=== PATIENT | male | born 1965 | race Caucasian/White ===

== ENCOUNTER 2016-12-12 18:35 | Emergency (ER) | payer SELFPAY ==
[2016-12-12 18:40] VITALS: BMI 54.1
[2016-12-12] MEDS ORDERED: Levalbuterol 1.25 MG/3 ML Inhal Soln UD IH STA ×3 (18:40→19:34)
[2016-12-12] MEDS ORDERED: MethylPREDNISolone 40 mg Vial IM STA (18:41)
[2016-12-12 18:44] VITALS: TEMP 98.1
--- NOTE | 2016-12-12 18:45 | ED PDOC ---
Arrival/HPI - General Time Seen by Provider: 12/12/16 18:40 Historian: Patient - History of Present Illness Narrative History of Present Illness (Text): 12/12/16 18:41 51yo morbidly obese male with PMHx of Asthma present with two days history of nonproducitve cough, SOB and wheeze. states he has been using his inhaler and took singular at home without relieve. Notes that this is his typical symptoms with Asthma exacerbation. He states whenever he gets these symptoms, is usually relieved with injection of steroid and medro dose pack. He has been admitted in for status Asthmaticus in the past. He is not steroid dependent. Never intubated. Denies fver, chills, chest pain, sick contact, any other complaint. Past Medical History - Provider Review Nursing Documentation Reviewed: Yes - Tetanus Immunization Tetanus Immunization: Unknown - Cardiac Hx Cardiac Disorders: No - Pulmonary Hx Asthma: Yes Hx Sleep Apnea: Yes - Neurological Hx Neurological Disorder: No - HEENT Hx HEENT Disorder: No - Renal Hx Renal Disorder: No - Endocrine/Metabolic Hx Endocrine Disorders: No - Hematological/Oncological Hx Blood Disorders: No - Integumentary Hx Dermatological Disorder: No - Musculoskeletal/Rheumatological Hx Falls: No - Gastrointestinal Hx Gastrointestinal Disorders: No - Genitourinary/Gynecological Hx Genitourinary Disorders: No - Psychiatric Hx Psychophysiologic Disorder: No Hx Depression: No Hx Emotional Abuse: No Hx Physical Abuse: No Hx Substance Use: No - Surgical History Hx Gastric Bypass Surgery: Yes (2011) Other/Comment: Lap Band 2012 - Anesthesia Hx Anesthesia: Yes Hx Anesthesia Reactions: No Hx Malignant Hyperthermia: No - Suicidal Assessment Feels Threatened In Home Enviroment: No Family/Social History - Physician Review Nursing Documentation Reviewed: Yes Family/Social History: Unknown Family HX Smoking Status: Never Smoked Hx Alcohol Use: No Hx Substance Use: No Hx Substance Use Treatment: No Allergies/Home Meds Allergies/Adverse Reactions: Allergies No Known Allergies Allergy (Verified 12/12/16 18:40) per patient Home Medications: Home Meds Medication Instructions Recorded Confirmed Albuterol Sulfate [Proventil Hfa] 2 puff IH PRN PRN 11/25/14 12/12/16 Fluticasone/Salmeterol 250/50 1 inh INH PRN PRN 10/27/15 12/12/16 [Advair Diskus 250/50] Review of Systems - Physician Review All systems were reviewed & negative as marked: Yes - Review of Systems Constitutional: Normal Eyes: Normal ENT: Normal Respiratory: SOB, Cough, Wheezing. absent: Sputum Cardiovascular: Normal Gastrointestinal: Normal Genitourinary Male: Normal Musculoskeletal: Normal Skin: Normal Neurological: Normal Endocrine: Normal Hemo/Lymphatic: Normal Psychiatric: Normal Physical Exam Vital Signs Reviewed: Yes Vital Signs Temp Pulse Resp BP Pulse Ox 12/12/16 19:50 98 H 19 118/56 L 97 12/12/16 18:38 20 12/12/16 18:35 98.1 F 94 H 20 99 Temperature: Afebrile Blood Pressure: Normal Pulse: Regular Respiratory Rate: Normal Appearance: Positive for: Well-Appearing, Non-Toxic, Comfortable Pain Distress: None Mental Status: Positive for: Alert and Oriented X 3 - Systems Exam Head: Present: Atraumatic, Normocephalic Pupils: Present: PERRL Extroacular Muscles: Present: EOMI Conjunctiva: Present: Normal Mouth: Present: Moist Mucous Membranes Neck: Present: Normal Range of Motion Respiratory/Chest: Present: Clear to Auscultation, Good Air Exchange, Wheezes ( Mild diffuse expiratory wheeze). No: Respiratory Distress, Accessory Muscle Use , Decreased Breath Sounds, Rales, Retracting, Rhonchi, Tachypneic Cardiovascular: Present: Regular Rate and Rhythm, Normal S1, S2. No: Murmurs Abdomen: Present: Normal Bowel Sounds. No: Tenderness, Distention, Peritoneal Signs Back: Present: Normal Inspection Upper Extremity: Present: Normal Inspection. No: Cyanosis, Edema Lower Extremity: Present: Normal Inspection. No: Edema Neurological: Present: GCS=15, CN II-XII Intact, Speech Normal Skin: Present: Warm, Dry, Normal Color. No: Rashes Psychiatric: Present: Alert, Oriented x 3, Normal Insight, Normal Concentration Medical Decision Making ED Course and Treatment: 12/12/16 20:30 Pt in ED for stated history. On re evaluation his Lung was CTA b/l. He states he feels much better. He was ambulatory and talking in full sentence without distress. She requested for antitussive and was given Promethazine. Referred to his PMD. TRT ED for any new or worsening symptoms. - Medication Orders Current Medication Orders: Discontinued Medications Levalbuterol HCl (Xopenex) 1.25 mg IH STAT STA Stop: 12/12/16 18:41 Last Admin: 12/12/16 18:52 Dose: 1.25 mg Levalbuterol HCl (Xopenex) 1.25 mg IH STAT STA Stop: 12/12/16 19:00 Last Admin: 12/12/16 19:24 Dose: 1.25 mg Levalbuterol HCl (Xopenex) 1.25 mg IH STAT STA Stop: 12/12/16 19:35 Last Admin: 12/12/16 19:39 Dose: 1.25 mg Methylprednisolone (Solu-Medrol) 125 mg IM STAT STA Stop: 12/12/16 18:42 Last Admin: 12/12/16 18:53 Dose: 125 mg Methylprednisolone (Solu-Medrol) Confirm Administered Dose 125 mg .ROUTE .STK- MED ONE Stop: 12/12/16 18:51 Last Admin: 12/12/16 19:16 Dose: Disposition/Present on Arrival - Present on Arrival Any Indicators Present on Arrival: No History of DVT/PE: No History of Uncontrolled Diabetes: No Urinary Catheter: No History Surgical Site Infection Following: None - Disposition Have Diagnosis and Disposition been Completed?: Yes Diagnosis: Asthmatic bronchitis Disposition: HOME/ ROUTINE Disposition Time: 20:30 Patient Plan: Discharge Condition: STABLE Discharge Instructions (ExitCare): Asthma (ED) Additional Instructions: Follow up with your Doctor Return to ED for any new or worsening symptoms Prescriptions: Methylprednisolone [Medrol Dose Pack (21 tabs)] 4 mg PO DAILY #21 mg Promethazine DM [Phenergan DM Syrup] 5 ml PO Q6 #100 ml
[2016-12-12] MEDS ORDERED: Promethazine 6.25 MG/5 ML CUP PO STA (20:26)
[2016-12-12 20:46] VITALS: BP 144/94; PULSE 97; RESP 18; O2SAT 95
== END 2016-12-12 20:57 | disposition home or self-care (01) ==
LOC: ED 18:35
DX: J45.909 Unspecified asthma, uncomplicated (principal)
CPT/HCPCS: 96372; 99285; J2920

== ENCOUNTER 2017-09-11 19:06 | Emergency (ER) | payer SELFPAY ==
[2017-09-11 19:12] VITALS: TEMP 98.6; BMI 60.5
[2017-09-11 19:15] VITALS: PULSE 83
[2017-09-11] MEDS ORDERED: Oxycodone/Acetaminophen 5/325 mg Tab PO STA (19:24)
--- NOTE | 2017-09-11 19:27 | ED PDOC ---
Arrival/HPI - General Chief Complaint: Back Pain Time Seen by Provider: 09/11/17 19:19 Historian: Patient - History of Present Illness Narrative History of Present Illness (Text): 09/11/17 19:24 52yo morbidly obese male with Past medical history of hypertension, Asthma present with complaint of right sided anterior and posterior rib pain. Patient notes that the pain started a week ago, when he coughed. States it felt like something "popped" then. States he took a friend Tramadol without relieve. States pain is worse with palpation, deep inspiration or movement. Denies shortness of breath, diaphoresis, chest pain, nausea, vomiting, urinary symptoms, abdominal pain, any other complaint. Past Medical History - Provider Review Nursing Documentation Reviewed: Yes - Tetanus Immunization Tetanus Immunization: Unknown - Cardiac Hx Cardiac Disorders: No - Pulmonary Hx Asthma: Yes Hx Sleep Apnea: Yes - Neurological Hx Neurological Disorder: No - HEENT Hx HEENT Disorder: No - Renal Hx Renal Disorder: No - Endocrine/Metabolic Hx Endocrine Disorders: No - Hematological/Oncological Hx Blood Disorders: No - Integumentary Hx Dermatological Disorder: No - Musculoskeletal/Rheumatological Hx Falls: No - Gastrointestinal Hx Gastrointestinal Disorders: No - Genitourinary/Gynecological Hx Genitourinary Disorders: No - Psychiatric Hx Psychophysiologic Disorder: No Hx Depression: No Hx Emotional Abuse: No Hx Physical Abuse: No Hx Substance Use: No - Surgical History Hx Gastric Bypass Surgery: Yes (2011) Other/Comment: Lap Band 2012 - Anesthesia Hx Anesthesia: Yes Hx Anesthesia Reactions: No Hx Malignant Hyperthermia: No - Suicidal Assessment Feels Threatened In Home Enviroment: No Family/Social History - Physician Review Nursing Documentation Reviewed: Yes Family/Social History: Unknown Family HX Smoking Status: Never Smoked Hx Alcohol Use: No Hx Substance Use: No Hx Substance Use Treatment: No Allergies/Home Meds Allergies/Adverse Reactions: Allergies No Known Allergies Allergy (Verified 09/11/17 19:10) per patient Home Medications: Home Meds Medication Instructions Recorded Confirmed Albuterol Sulfate [Proventil Hfa] 2 puff IH PRN PRN 11/25/14 09/11/17 Fluticasone/Salmeterol 250/50 1 inh INH PRN PRN 10/27/15 09/11/17 [Advair Diskus 250/50] Review of Systems - Physician Review All systems were reviewed & negative as marked: Yes - Review of Systems Constitutional: Normal Eyes: Normal ENT: Normal Respiratory: Normal Cardiovascular: Normal Gastrointestinal: Normal Genitourinary Male: Normal Musculoskeletal: Arthralgias (Right rib pain) Skin: Normal Neurological: Normal Endocrine: Normal Hemo/Lymphatic: Normal Psychiatric: Normal Physical Exam Vital Signs Reviewed: Yes Vital Signs Temp Pulse Resp BP Pulse Ox 09/11/17 19:12 98.6 F 83 21 123/76 96 09/11/17 19:10 98.6 F 97 H 21 123/76 98 Temperature: Afebrile Blood Pressure: Normal Pulse: Regular Respiratory Rate: Normal Appearance: Positive for: Well-Appearing, Non-Toxic, Comfortable Pain Distress: None Mental Status: Positive for: Alert and Oriented X 3 - Systems Exam Head: Present: Atraumatic, Normocephalic Pupils: Present: PERRL Extroacular Muscles: Present: EOMI Conjunctiva: Present: Normal Mouth: Present: Moist Mucous Membranes Neck: Present: Normal Range of Motion Respiratory/Chest: Present: Clear to Auscultation, Good Air Exchange, Tender to Palpation (anterior/posterior ribs). No: Respiratory Distress, Accessory Muscle Use, Wheezes, Decreased Breath Sounds, Rales, Retracting, Rhonchi, Tachypneic Cardiovascular: Present: Regular Rate and Rhythm, Normal S1, S2. No: Murmurs Abdomen: Present: Normal Bowel Sounds. No: Tenderness, Distention, Peritoneal Signs Back: Present: Normal Inspection Upper Extremity: Present: Normal Inspection. No: Cyanosis, Edema Lower Extremity: Present: Normal Inspection. No: Edema Neurological: Present: GCS=15, CN II-XII Intact, Speech Normal Skin: Present: Warm, Dry, Normal Color. No: Rashes Psychiatric: Present: Alert, Oriented x 3, Normal Insight, Normal Concentration Medical Decision Making ED Course and Treatment: 09/11/17 20:07 PT in Emergency department for stated history. He was not hypoxic , hemodynamically stable in Emergency department. Right ribs series/CXr NAD Result was DW the pt. His pain was controlled in Emergency department with medication. He will be DC home with incentive spirometry, Naprosyn and Tramadol. Referred to his PMD. - RAD Interpretation Radiology Orders: 09/11/17 19:24 RIBS RIGHT & PA CHEST [RAD] Stat - Medication Orders Current Medication Orders: Discontinued Medications Ketorolac Tromethamine (Toradol) 60 mg IM STAT STA Stop: 09/11/17 19:24 Oxycodone/Acetaminophen (Percocet 5/325 Mg Tab) 1 tab PO STAT STA Stop: 09/11/17 19:25 Disposition/Present on Arrival - Present on Arrival Any Indicators Present on Arrival: No History of DVT/PE: No History of Uncontrolled Diabetes: No Urinary Catheter: No History of Decub. Ulcer: No History Surgical Site Infection Following: None - Disposition Have Diagnosis and Disposition been Completed?: Yes Diagnosis: Rib pain Disposition: HOME/ ROUTINE Disposition Time: 20:10 Patient Plan: Discharge Condition: STABLE Discharge Instructions (ExitCare): Chest Pain (ED) Additional Instructions: Follow up with your doctor Return to Emergency department for any new or worsening symptoms Prescriptions: Naproxen [Naprosyn] 500 mg PO BID #20 tablet traMADol [Ultram] 50 mg PO TID #10 tab Referrals: [facility] at [facility] [place] [Outside] - Follow up with primary Forms: [email or web address] (Nepali)
[2017-09-11 21:04] VITALS: BP 126/88; RESP 20; O2SAT 97
--- NOTE | 2017-09-12 09:59 | RAD ---
PROCEDURE: Radiographs of the Chest and Right Ribs. HISTORY: rib pain COMPARISON: None available. TECHNIQUE: Frontal radiograph of the chest and multiple oblique radiographs of the right ribs were obtained. FINDINGS: RIGHT RIBS: No acute rib fracture or focal lesion visualized. LUNGS: Clear. PLEURA: No pneumothorax or pleural fluid. CARDIOVASCULAR: Normal sized heart. No pulmonary vascular congestion. OTHER FINDINGS: None. IMPRESSION: No acute rib fracture. Clear lungs
== END 2017-09-11 20:49 | disposition home or self-care (01) ==
LOC: ED 19:06
DX: R07.81 Pleurodynia (principal)
CPT/HCPCS: 71101; 96372; 99284; J1885

== ENCOUNTER 2017-11-27 17:15 | Emergency (ER) | payer OTHER ==
[2017-11-27 17:15] VITALS: BMI 60.5
[2017-11-27 17:21] VITALS: RESP 18
--- NOTE | 2017-11-27 18:40 | ED PDOC ---
Arrival/HPI - General Historian: Patient <Naty Douglas A - Last Filed: 11/27/17 18:36> <Stef Groves - Last Filed: 11/27/17 21:21> - General Chief Complaint: Lower Extremity Problem/Injury Time Seen by Provider: 11/27/17 17:26 - History of Present Illness Narrative History of Present Illness (Text): 11/27/17 18:37 52yo morbidly obese male with PMHx of Asthma who present today with complaint of left knee pain s/p trauma last week. States he slipped and fell, injuring his knee last week. States he took OTC analgesic without relieve. He came to ED today for the persistent pain. He denies any other complaint (Naty Douglas A) Past Medical History - Provider Review Nursing Documentation Reviewed: Yes - Tetanus Immunization Tetanus Immunization: Unknown - Cardiac Hx Cardiac Disorders: No - Pulmonary Hx Asthma: Yes Hx Sleep Apnea: Yes - Neurological Hx Neurological Disorder: No - HEENT Hx HEENT Disorder: No - Renal Hx Renal Disorder: No - Endocrine/Metabolic Hx Endocrine Disorders: No - Hematological/Oncological Hx Blood Disorders: No - Integumentary Hx Dermatological Disorder: No - Musculoskeletal/Rheumatological Hx Falls: No - Gastrointestinal Hx Gastrointestinal Disorders: No - Genitourinary/Gynecological Hx Genitourinary Disorders: No - Psychiatric Hx Psychophysiologic Disorder: No Hx Depression: No Hx Emotional Abuse: No Hx Physical Abuse: No Hx Substance Use: No - Surgical History Hx Gastric Bypass Surgery: Yes (2011) Other/Comment: Lap Band 2012 - Anesthesia Hx Anesthesia: Yes Hx Anesthesia Reactions: No Hx Malignant Hyperthermia: No - Suicidal Assessment Feels Threatened In Home Enviroment: No <Naty Douglas A - Last Filed: 11/27/17 18:36> Family/Social History - Physician Review Nursing Documentation Reviewed: Yes Family/Social History: Unknown Family HX Smoking Status: Never Smoked Hx Alcohol Use: No Hx Substance Use: No Hx Substance Use Treatment: No <Naty Douglas A - Last Filed: 11/27/17 18:36> Allergies/Home Meds <Naty Douglas A - Last Filed: 11/27/17 18:36> <Stef Groves - Last Filed: 11/27/17 21:21> Allergies/Adverse Reactions: Allergies No Known Allergies Allergy (Verified 11/27/17 17:21) per patient Home Medications: Home Meds Medication Instructions Recorded Confirmed Albuterol Sulfate [Proventil Hfa] 2 puff IH PRN PRN 11/25/14 11/27/17 Fluticasone/Salmeterol 250/50 1 inh INH PRN PRN 10/27/15 11/27/17 [Advair Diskus 250/50] Physical Exam Vital Signs Reviewed: Yes Temperature: Afebrile Blood Pressure: Normal Pulse: Regular Respiratory Rate: Normal Appearance: Positive for: Well-Appearing, Non-Toxic, Comfortable Pain Distress: None Mental Status: Positive for: Alert and Oriented X 3 - Systems Exam Head: Present: Atraumatic, Normocephalic Pupils: Present: PERRL Extroacular Muscles: Present: EOMI Conjunctiva: Present: Normal Mouth: Present: Moist Mucous Membranes Neck: Present: Normal Range of Motion Respiratory/Chest: Present: Clear to Auscultation, Good Air Exchange. No: Respiratory Distress, Accessory Muscle Use Cardiovascular: Present: Regular Rate and Rhythm, Normal S1, S2. No: Murmurs Abdomen: No: Tenderness, Distention, Peritoneal Signs Back: Present: Normal Inspection Upper Extremity: Present: Normal Inspection. No: Cyanosis, Edema Lower Extremity: Present: NORMAL PULSES, Normal ROM, Tenderness (medial aspect of left knee), Neurovascularly Intact. No: Edema, Swelling Neurological: Present: GCS=15, CN II-XII Intact, Speech Normal Skin: Present: Warm, Dry, Normal Color. No: Rashes Psychiatric: Present: Alert, Oriented x 3, Normal Insight, Normal Concentration <DiruHappiness A - Last Filed: 11/27/17 18:36> Vital Signs Temp Pulse Resp BP Pulse Ox 11/27/17 18:56 97.9 F 80 18 140/82 96 11/27/17 17:24 98.0 F 84 18 145/86 99 11/27/17 17:19 98 F 84 18 145/86 96 11/27/17 17:15 98 F 84 18 145/86 96 Medical Decision Making <Diru,Happiness A - Last Filed: 11/27/17 18:36> <Stef Groves - Last Filed: 11/27/17 21:21> ED Course and Treatment: 11/27/17 18:42 Left knee xray - No acute fracture noted Result was DW the pt. Brijesh wrap placed. Rx of Naprosyn given. Referred to Ortho. (Naty Douglas) - RAD Interpretation Radiology Orders: 11/27/17 17:31 KNEE WITH PATELLA LEFT 3 VIEW [RAD] Stat - Medication Orders Current Medication Orders: Discontinued Medications Ketorolac Tromethamine (Toradol) 60 mg IM STAT STA Stop: 11/27/17 17:57 Last Admin: 11/27/17 18:05 Dose: 60 mg MAR Pain Assessment Document 11/27/17 18:05 SRE (Rec: 11/27/17 18:09 SRE [id number]) Pain Reassessment Is this a pain reassessment? Yes Sleep Is patient sleeping during reassessment? No Presence of Pain Presence of Pain Yes Pain Scale Used Pain Scale Used Numeric Location Pain Location Body Site Knee Description Description Intermittent IM Administration Charges Document 11/27/17 18:05 SRE (Rec: 11/27/17 18:09 SRE [id number]) Charges for Administration # of IM Administrations 1 - PA / PUBLIC SERVICES ASSISTANT / Resident Statement / has examined the patient and agrees with the treatment plan. <Stef Groves - Last Filed: 11/27/17 21:21> Disposition/Present on Arrival - Present on Arrival Any Indicators Present on Arrival: No History of DVT/PE: No History of Uncontrolled Diabetes: No Urinary Catheter: No History of Decub. Ulcer: No History Surgical Site Infection Following: None - Disposition Have Diagnosis and Disposition been Completed?: Yes Disposition Time: 18:45 Patient Plan: Discharge <Naty Douglas - Last Filed: 11/27/17 18:36> <Stef Groves - Last Filed: 11/27/17 21:21> - Disposition Diagnosis: Knee pain Disposition: HOME/ ROUTINE Condition: STABLE Discharge Instructions (ExitCare): Knee Pain (DC) Additional Instructions: Follow up with orthopedist Return to ED for any new or worsening symptoms Prescriptions: Naproxen [Naprosyn] 500 mg PO BID #20 tablet Referrals: Kacy Uriostegui, [Primary Care Provider] - Follow up with primary Balta Frankel III, MD [Medical Doctor] - Follow up with primary Forms: [employer] (Vietnamese)
[2017-11-27 18:57] VITALS: BP 140/82; PULSE 80; TEMP 97.9; O2SAT 96
--- NOTE | 2017-11-27 21:23 | ED PDOC ---
Arrival/HPI - General Chief Complaint: Lower Extremity Problem/Injury Time Seen by Provider: 11/27/17 17:26 Past Medical History - Tetanus Immunization Tetanus Immunization: Unknown - Cardiac Hx Cardiac Disorders: No - Pulmonary Hx Asthma: Yes Hx Sleep Apnea: Yes - Neurological Hx Neurological Disorder: No - HEENT Hx HEENT Disorder: No - Renal Hx Renal Disorder: No - Endocrine/Metabolic Hx Endocrine Disorders: No - Hematological/Oncological Hx Blood Disorders: No - Integumentary Hx Dermatological Disorder: No - Musculoskeletal/Rheumatological Hx Falls: No - Gastrointestinal Hx Gastrointestinal Disorders: No - Genitourinary/Gynecological Hx Genitourinary Disorders: No - Psychiatric Hx Psychophysiologic Disorder: No Hx Depression: No Hx Emotional Abuse: No Hx Physical Abuse: No Hx Substance Use: No - Surgical History Hx Gastric Bypass Surgery: Yes (2011) Other/Comment: Lap Band 2011 - Anesthesia Hx Anesthesia: Yes Hx Anesthesia Reactions: No Hx Malignant Hyperthermia: No - Suicidal Assessment Feels Threatened In Home Enviroment: No Family/Social History Family/Social History: Unknown Family HX Smoking Status: Never Smoked Hx Alcohol Use: No Hx Substance Use: No Hx Substance Use Treatment: No Allergies/Home Meds Allergies/Adverse Reactions: Allergies No Known Allergies Allergy (Verified 11/27/17 17:21) per patient Home Medications: Home Meds Medication Instructions Recorded Confirmed Albuterol Sulfate [Proventil Hfa] 2 puff IH PRN PRN 11/25/14 11/27/17 Fluticasone/Salmeterol 250/50 1 inh INH PRN PRN 10/27/15 11/27/17 [Advair Diskus 250/50] Physical Exam Vital Signs Temp Pulse Resp BP Pulse Ox 11/27/17 18:56 97.9 F 80 18 140/82 96 11/27/17 17:24 98.0 F 84 18 145/86 99 11/27/17 17:19 98 F 84 18 145/86 96 11/27/17 17:15 98 F 84 18 145/86 96 Medical Decision Making - RAD Interpretation Radiology Orders: 11/27/17 17:31 KNEE WITH PATELLA LEFT 3 VIEW [RAD] Stat - Medication Orders Current Medication Orders: Discontinued Medications Ketorolac Tromethamine (Toradol) 60 mg IM STAT STA Stop: 11/27/17 17:57 Last Admin: 11/27/17 18:05 Dose: 60 mg MAR Pain Assessment Document 11/27/17 18:05 [facility] (Rec: 11/27/17 18:09 [facility] [id number]) Pain Reassessment Is this a pain reassessment? Yes Sleep Is patient sleeping during reassessment? No Presence of Pain Presence of Pain Yes Pain Scale Used Pain Scale Used Numeric Location Pain Location Body Site Knee Description Description Intermittent IM Administration Charges Document 11/27/17 18:05 [facility] (Rec: 11/27/17 18:09 [facility] [id number]) Charges for Administration # of IM Administrations 1 - PA / ART OBJECTS SALESPERSON / Resident Statement MD/DO has examined the patient and agrees with the treatment plan. Disposition/Present on Arrival - Present on Arrival Any Indicators Present on Arrival: No History of DVT/PE: No History of Uncontrolled Diabetes: No Urinary Catheter: No History of Decub. Ulcer: No History Surgical Site Infection Following: None - Disposition Have Diagnosis and Disposition been Completed?: Yes Diagnosis: Knee pain Disposition: HOME/ ROUTINE Disposition Time: 21:23 Condition: STABLE Discharge Instructions (ExitCare): Knee Pain (DC) Additional Instructions: Follow up with orthopedist Return to ED for any new or worsening symptoms Prescriptions: Naproxen [Naprosyn] 500 mg PO BID #20 tablet Referrals: Kacy Uriostegui, [Primary Care Provider] - Follow up with primary Balta Frankel III, MD [Medical Doctor] - Follow up with primary Forms: [employer] (Bahamian)
--- NOTE | 2017-11-28 09:09 | RAD ---
PROCEDURE: Left Knee Radiographs. HISTORY: Pain. COMPARISON: None. FINDINGS: BONES: Normal. No fracture. JOINTS: Normal. No osteoarthritis. JOINT EFFUSION: None. OTHER FINDINGS: None. IMPRESSION: Normal radiographs of the left knee.
== END 2017-11-27 18:56 | disposition home or self-care (01) ==
LOC: ED 17:15
DX: M25.562 Pain in left knee (principal); E66.01 Morbid (severe) obesity due to excess calories
CPT/HCPCS: 73562; 96372; 99284; J1885